=== PATIENT | male | born 1990 | race Caucasian/White ===

== ENCOUNTER → 2019-09-12 | Outpatient (CLI) | payer OTHER ==
[~2019-09-12] MED LIST: GASTROGRAFIN SOLUTION 30ML (Q9963) As Ordered ONE; ISOVUE-370 76% 100ML VIAL (Q9967) As Ordered ONE
--- NOTE | 2019-09-12 18:43 | REP ---
CT abdomen without and with IV contrast: History: Hemangioma versus malignant mass of the liver. No comparison CT study. CT contrast dose: 100 ml of intravenous Isovue 370. CT findings: Preliminary digital director of public works radiograph shows clips in the gallbladder fossa. The lung bases are clear on axial CT images. There is a moderate geographic pattern of low density throughout the liver consistent with fatty infiltration. There are areas of relative sparing. The most pronounce fatty infiltration is seen in the left lobe. No hepatic mass lesion is seen. The liver is mildly enlarged with an 18.2 cm craniocaudal span in the midclavicular line. The spleen is mildly prominent as well measuring 14.2 cm in greatest dimension. No focal splenic lesion is seen. No adrenal lesion is observed. No abnormality is noted in the pancreas. There are clips in the gallbladder post cholecystectomy. The kidneys enhance symmetrically and are morphologically intact. No retroperitoneal mass or adenopathy is seen. Small and large intestinal bowel loops are normal in the abdomen and pelvis. Impression: Mild hepatosplenomegaly. Moderate diffuse fatty infiltration of the liver. No focal liver mass lesion is seen. Electronically Signed by Adalid Lee MD 09/12/2019 07:53 P
== END ==
LOC: M RAD 14:18
PROVIDERS: ATTEND Family Medicine
DX: K76.89 Other specified diseases of liver (principal)